=== PATIENT | male | born 1985 | race Two or more races ===

== ENCOUNTER 2017-07-03 12:27 | Emergency (ER) | payer OTHER ==
--- NOTE | 2017-07-03 14:04 | EDM.PDOC ---
ED HPI GENERAL MEDICAL PROBLEM - General Chief Complaint: Skin Complaint Stated Complaint: UNK ISSUES Time Seen by Provider: 07/03/17 13:55 Source of Information: Reports: Patient History Limitations: Reports: No Limitations - History of Present Illness INITIAL COMMENTS - FREE TEXT/NARRATIVE: HISTORY AND PHYSICAL: History of present illness: [Patient comes to the emergency room complaining of right buttock pain. 18 days ago he injected himself with [place]is[place]. He has a history of psoriasis and psoriatic arthritis. This was the first IM injection he's ever given himself. He had no pain at the time of the shot but over the next couple of days he developed redness and warmth and swelling to his right buttock at the site of the injection. His local physician in [place] prescribed amoxicillin 3 times a day which he has been taking for the past 9 days. Complains of some pain down the back of his leg and behind his knee but does not radiate into his foot. The pain is worse first thing in the morning. He is noticing limping and difficulty ambulating at times due to the pain. He describes it as an electrical shooting pain from his buttock down the back of his right thigh. No fever or chills. No redness or warmth to the area has been appreciated and starting the amoxicillin. He is concerned that the area may still be infected.] Review of systems: As per history of present illness and below otherwise all systems reviewed and negative. Past medical history: As per history of present illness and as reviewed below otherwise noncontributory. Surgical history: As per history of present illness and as reviewed below otherwise noncontributory. Social history: No reported history of drug or alcohol abuse. Family history: As per history of present illness and as reviewed below otherwise noncontributory. Physical exam: HEENT: Atraumatic, normocephalic. Areas of red plaques to his forehead and scalp. Lungs: Clear to auscultation, breath sounds equal bilaterally. Heart: S1S2, regular. Pelvis: Stable nontender. Genitourinary: Deferred. Rectal: Deferred. Extremities: Area of induration to right upper mid buttock, is approximately 4 cm x 4 cm. No redness or warmth noted. Mild swelling is appreciated. Is tender with palpation. Complains of a shooting sensation down his leg with palpation over the affected area. Patellar reflexes are 1+ and equal bilaterally. Neurovascular unremarkable. Neuro: Awake, alert, oriented. Motor and sensory unremarkable throughout. Exam nonfocal. Diagnostics: [CBC] Impression: [Sciatica] Plan: [Discussed with patient that he likely injected into his sciatic nerve which is causing the pain and induration. Instructed Tylenol alternating ibuprofen, heat alternating with ice. Gentle stretches. Encouraged him to follow-up with a local primary care provider he states that he is going back to [place] in 4 days and will follow-up at his home. Continue antibiotics that he was previously prescribed. Strict return precautions are reviewed. He is in agreement with today's discussion.] Definitive disposition and diagnosis as appropriate pending reevaluation and review of above. Right hip Pain Score (Numeric/FACES): 9 - Related Data Allergies Allergy/AdvReac Type Severity Reaction Status Date / Time No Known Allergies Allergy Verified 07/03/17 12:54 Home Meds: Home Meds . [No Known Home Meds] 07/03/17 [History] Past Medical History - Past Health History Medical/Surgical History: Denies Medical/Surgical History Social & Family History - Family History Family Medical History: Noncontributory - Tobacco Use Smoking Status *Q: Never Smoker Second Hand Smoke Exposure: No - Caffeine Use Caffeine Use: Reports: None - Recreational Drug Use Recreational Drug Use: No ED ROS GENERAL - Review of Systems Review Of Systems: ROS reveals no pertinent complaints other than HPI. ED EXAM, SKIN/RASH Exam: See Below Course - Vital Signs Last Recorded V/S: Last Vital Signs Temp 98.9 F 07/03/17 12:54 Pulse 81 07/03/17 12:54 Resp 16 07/03/17 12:54 BP 112/72 07/03/17 12:54 Pulse Ox 96 07/03/17 12:54 - Orders/Labs/Meds Labs: Laboratory Tests 07/03/17 Range/Units 14:01 WBC 6.40 (4.0-11.0) K/uL RBC 4.74 (4.50-5.90) M/uL Hgb 12.9 L (13.0-17.0) g/dL Hct 40.2 (38.0-50.0) % MCV 84.8 (80.0-98.0) fL MCH 27.2 (27.0-32.0) pg MCHC 32.1 (31.0-37.0) g/dL RDW Std Deviation 41.4 (28.0-62.0) fl RDW Coeff of [place] 13 (11.0-15.0) % Plt Count 237 (150-400) K/uL MPV 9.20 (7.40-12.00) fL Neut % (Auto) 70.9 (48.0-80.0) % Lymph % (Auto) 21.6 (16.0-40.0) % [place] % (Auto) 6.4 (0.0-15.0) % Eos % (Auto) 0.8 (0.0-7.0) % Baso % (Auto) 0.3 (0.0-1.5) % Neut # (Auto) 4.5 (1.4-5.7) K/uL Lymph # (Auto) 1.4 (0.6-2.4) K/uL [place] # (Auto) 0.4 (0.0-0.8) K/uL Eos # (Auto) 0.1 (0.0-0.7) K/uL Baso # (Auto) 0.0 (0.0-0.1) K/uL Nucleated RBC % 0.0 /100WBC Nucleated RBCs # 0 K/uL Departure - Departure Time of Disposition: 14:25 Disposition: Home, Self-Care 01 Condition: Good Clinical Impression: Right buttock pain - Discharge Information Instructions: Hip Pain Referrals: [facility] [Outside] PCP,None [Primary Care Provider] - Forms: ED Department Discharge Additional Instructions: The following information is given to patients seen in the emergency department who are being discharged to home. This information is to outline your options for follow-up care. We provide all patients seen in our emergency department with a follow-up referral. The need for follow-up, as well as the timing and circumstances, are variable depending upon the specifics of your emergency department visit. If you don't have a primary care physician on staff, we will provide you with a referral. We always advise you to contact your personal physician following an emergency department visit to inform them of the circumstance of the visit and for follow-up with them and/or the need for any referrals to a consulting specialist. The emergency department will also refer you to a specialist when appropriate. This referral assures that you have the opportunity for follow-up care with a specialist. All of these measure are taken in an effort to provide you with optimal care, which includes your follow-up. Under all circumstances we always encourage you to contact your private physician who remains a resource for coordinating your care. When calling for follow-up care, please make the office aware that this follow-up is from your recent emergency room visit. If for any reason you are refused follow-up, please contact the [facility] emergency department at and asked to speak to the emergency department charge nurse. [facility] [address] [place] [id number] Establish care with a local primary care provider and follow-up there in the next 48-72 hours or follow-up with your primary care provider at home when you return. Tylenol alternating with ibuprofen as we discussed. You need to give this time. Alternating heat and ice may be beneficial. Return to the ER as needed as discussed.
== END 2017-07-03 14:30 | disposition home or self-care (01) ==
LOC: MW.ED 12:27
DX: M54.41 Lumbago with sciatica, right side (principal); Z87.2 Personal history of diseases of the skin and subcutaneous tissue
CPT/HCPCS: 36415; 85025; 99283